=== PATIENT | male | born 1985 | race Hispanic/Latino ===

== ENCOUNTER 2020-08-25 08:15 | Emergency (ER) | payer SELFPAY ==
[2020-08-25 08:24] VITALS: BP 128/94
[2020-08-25] MEDS ORDERED: IBUPROFEN 800 MG TAB PO ONE (09:31)
--- NOTE | 2020-08-25 10:02 | XRay Report ---
LEFT FOOT 3 VIEWS INDICATION / CLINICAL INFORMATION: left foot pain and swelling COMPARISON: None available. FINDINGS: BONES / JOINT(S): No acute fracture or subluxation. No significant arthritis. Screw-plate device is n oted on the calcaneus. SOFT TISSUES: There is a tiny metallic foreign body projecting at the lateral aspect of the fifth toe . ADDITIONAL FINDINGS: None. Signer Name: Meet Argueta MD Signed: 08/25/2020 9:58 AM Workstation Name: [id number]
--- NOTE | 2020-08-25 10:46 | Emergency Department Report ---
ED Lower Extremity HPI - General Chief Complaint: Extremity Injury, Lower Stated Complaint: LEFT FOOT SWELLING Time Seen by Provider: 08/25/20 09:11 Source: patient Mode of arrival: Ambulatory Limitations: No Limitations - History of Present Illness Initial Comments: This is a 35-year-old male nontoxic, well nourished in appearance, no acute signs of distress presents to the ED with c/o of left foot pain and swelling x1 day. Patient denies any injuries or trauma. Patient did state that he went to [employer] yesterday and has been walking a lot. Patient denies any other complaints or symptoms. Patient denies any numbness, tingling, fever, chills, nausea, vomiting, chest pain, shortness of breath, headache, stiff neck. Patient denies any joint swelling or joint redness. Patient denies decreased range of motion. Patient stated has decreased gait due to pain. Patient stated allergies to hydrocodone. Denies any significant past medical history. -: This evening Injury: Foot: Left Severity: mild Severity scale (0 -10): 3 Improves With: nothing Worsens With: nothing Associated Symptoms: swelling, ambulatory. denies: snap/pop sensation, numbness, tingling, unable to bear weight, able to partially bear weight - Related Data Allergies Allergy/AdvReac Type Severity Reaction Status Date / Time hydrocodone Allergy Hives Verified 08/25/20 08:22 ED Review of Systems ROS: Stated complaint: LEFT FOOT SWELLING Other details as noted in HPI Comment: All other systems reviewed and negative Constitutional: denies: chills, fever Eyes: denies: eye pain, eye discharge, vision change ENT: denies: ear pain, throat pain Respiratory: denies: cough, shortness of breath, wheezing Cardiovascular: denies: chest pain, palpitations Endocrine: no symptoms reported Gastrointestinal: denies: abdominal pain, nausea, diarrhea Genitourinary: denies: urgency, dysuria Musculoskeletal: denies: back pain, joint swelling, arthralgia Skin: denies: rash, lesions Neurological: denies: headache, weakness, paresthesias Psychiatric: denies: anxiety, depression Hematological/Lymphatic: denies: easy bleeding, easy bruising ED Past Medical Hx - Past Medical History Previous Medical History?: No - Surgical History Past Surgical History?: Yes Additional Surgical History: left foot fx surgery ED Physical Exam - General Limitations: No Limitations General appearance: alert, in no apparent distress - Head Head exam: Present: atraumatic, normocephalic - Eye Eye exam: Present: normal appearance - Neck Neck exam: Present: normal inspection, full ROM. Absent: lymphadenopathy - Respiratory Respiratory exam: Absent: respiratory distress - Cardiovascular Cardiovascular Exam: Present: regular rate. Absent: gallop - Extremities Exam Extremities exam: Present: normal inspection, full ROM, tenderness, normal capillary refill. Absent: joint swelling, calf tenderness - Expanded Lower Extremity Exam Left Hip exam: Present: normal inspection, full ROM. Absent: tenderness, swelling Upper Leg exam: Present: normal inspection, full ROM. Absent: tenderness, swelling Knee exam: Present: normal inspection, full ROM. Absent: tenderness, swelling Lower Leg exam: Present: normal inspection, full ROM. Absent: tenderness, swelling, abrasion, laceration, ecchymosis, deformity, crepidus, erythema, palpable cord, Tana's sign Ankle exam: Present: normal inspection, full ROM. Absent: tenderness, swelling, abrasion, laceration, ecchymosis, deformity, crepidus, dislocation, erythema, anterior draw sign Foot/Toe exam: Present: full ROM, tenderness, swelling, erythema. Absent: abrasion, laceration, ecchymosis, deformity, crepidus, dislocation, amputation, puncture wound, foreign body, calcaneal tenderness, tenderness at base of 5th metatarsal, nail avulsion, subungual hematoma Neuro vascular tendon exam: Present: no vascular compromise Gait: Positive: observed and normal 1 - Pain and swelling here - Back Exam Back exam: Present: normal inspection, full ROM - Neurological Exam Neurological exam: Present: alert, oriented X3, normal gait - Psychiatric Psychiatric exam: Present: normal affect, normal mood - Skin Skin exam: Present: warm, dry, intact, normal color. Absent: rash ED Course Vital Signs 08/25/20 08:22 Temperature 97.6 F Pulse Rate 90 Respiratory 14 Rate Blood Pressure 128/94 O2 Sat by Pulse 97 Oximetry - Reevaluation(s) Reevaluation #1: 08/25/20 10:44 Patient is speaking in full sentences with no signs of distress noted. ED Lower Extremity MDM - Radiology Data [facility] [address] [place] [address] XRay Report Signed Patient: CORNELIUS WINN MR#: [id number] : 1985 Acct:[id number] Age/Sex: 35 / M ADM Date: 08/25/20 Loc: ED Attending Dr: Ordering Physician: JENA ALFARO NP Date of Service: 08/25/20 Procedure(s): XR foot 3+V LT Accession Number(s): [id number] cc: JENA ALFARO NP Fluoro Time In Minutes: LEFT FOOT 3 VIEWS INDICATION / CLINICAL INFORMATION: left foot pain and swelling COMPARISON: None available. FINDINGS: BONES / JOINT(S): No acute fracture or subluxation. No significant arthritis. Screw- plate device is noted on the calcaneus. SOFT TISSUES: There is a tiny metallic foreign body projecting at the lateral aspect of the fifth toe. ADDITIONAL FINDINGS: None. Signer Name: Meet Argueta MD Signed: 08/25/2020 9:58 AM Workstation Name: [id number] Transcribed By: SS Dictated By: Meet Argueta MD Electronically Authenticated By: Meet Argueta MD Signed Date/Time: 08/25/20957 DD/ 5 TD/TT: - Medical Decision Making This is a 35-year-old male that presents with left foot strain versus cellulitis. Patient is stable and was examined by me. Exam does not reveal any puncture wounds or acute foreign body on exam. As I approached the room to notify patient of the results and treatment plan, patient was not in the room. As per RN, patient left AGAINST MEDICAL ADVICE. I was not notified until I entered the room. I tried to contact patient with phone listed but was unsuccessful. Critical care attestation.: If time is entered above; I have spent that time in minutes in the direct care of this critically ill patient, excluding procedure time. ED Disposition Clinical Impression: Cellulitis of left foot Strain of left foot Qualifiers: Encounter type: initial encounter Qualified Code(s): S96.912A - Strain of unspecified muscle and tendon at ankle and foot level, left foot, initial encounter Disposition: DC-07 LEFT AGAINST MED ADVICE Is pt being admited?: No Condition: Undetermined
== END 2020-08-25 10:46 | disposition left against medical advice (07) ==
LOC: ED 08:15
DX: S96.912A Strain of unspecified muscle and tendon at ankle and foot level, left foot, initial encounter (principal); L03.116 Cellulitis of left lower limb; Z98.890 Other specified postprocedural states; Z88.5 Allergy status to narcotic agent; Z79.899 Other long term (current) drug therapy; X58.XXXA Exposure to other specified factors, initial encounter; Y93.89 Activity, other specified; Y92.89 Other specified places as the place of occurrence of the external cause; Y99.8 Other external cause status
CPT/HCPCS: 99283